=== PATIENT | male | born 1950 | race Caucasian/White ===

== ENCOUNTER 2017-12-03 13:36 | Emergency (ER) | payer MEDICARE, BC ==
[2017-12-03 15:26] VITALS: BP 142/84
--- NOTE | 2017-12-03 15:43 | UC ---
Throat Pain/Nasal Cristopher HPI - HPI Summary HPI Summary: 8 days of worsening upper respiratory infections the last 4 days exclusively into his sinuses, has headache, and sinus pain pressure, ear pain, and pressure - History of Current Complaint Chief Complaint: UCGeneralIllness Stated Complaint: SINUS Time Seen by Provider: 12/03/17 15:10 Hx Obtained From: Patient Onset/Duration: Sudden Onset, Lasting Days - 8, Still Present Severity: Moderate Pain Intensity: 5 Pain Scale Used: 0-10 Numeric Cough: None Associated Signs & Symptoms: Positive: Sinus Discomfort, Nasal Discharge - Allergies/Home Medications Allergies/Adverse Reactions: Allergies Allergy/AdvReac Type Severity Reaction Status Date / Time No Known Allergies Allergy Verified 12/03/17 15:23 Home Medications: Home Medications Pravastatin (NF) [Pravachol (NF)] 20 mg PO DAILY 12/03/17 [History Confirmed ] PMH/Surg Hx/FS Hx/Imm Hx Previously Healthy: No Endocrine History: Dyslipidemia Cardiovascular History: Hypertension GI/ History: Gastroesophageal Reflux - Surgical History Surgical History: Yes Surgery Procedure, Year, and Place: hernia x2 - Family History Known Family History: Positive: None - Social History Occupation: Retired Lives: With Family Alcohol Use: Occasionally Substance Use Type: None Smoking Status (MU): Former Smoker Type: Cigars Amount Used/How Often: occasional cigar - Immunization History Most Recent Influenza Vaccination: fall 2012 Review of Systems Constitutional: Negative Skin: Negative Eyes: Negative ENT: Sore Throat, Ear Ache, Nasal Discharge, Sinus Congestion, Sinus Pain/ Tenderness Respiratory: Negative Cardiovascular: Negative Gastrointestinal: Negative Genitourinary: Negative Motor: Negative Neurovascular: Negative Musculoskeletal: Negative Neurological: Headache Psychological: Negative Is Patient Immunocompromised?: No All Other Systems Reviewed And Are Negative: Yes Physical Exam Triage Information Reviewed: Yes Appearance: No Pain Distress, Well-Nourished, Ill-Appearing - mild Vital Signs: Initial Vital Signs Temp 98.8 F 12/03/17 15:20 Pulse 60 12/03/17 15:20 Resp 14 12/03/17 15:20 BP 142/84 12/03/17 15:20 Pulse Ox 97 12/03/17 15:20 Vital Signs Reviewed: Yes Eye Exam: Normal Eyes: Positive: Conjunctiva Clear ENT Exam: Normal ENT: Positive: Normal ENT inspection, Hearing grossly normal, Pharynx normal, Nasal congestion, TMs normal, Sinus tenderness, Uvula midline. Negative: Tonsillar swelling, Tonsillar exudate, Trismus, Muffled voice, Hoarse voice, Dental tenderness Dental Exam: Normal Neck exam: Normal Neck: Positive: Supple, Nontender, No Lymphadenopathy Respiratory Exam: Normal Respiratory: Positive: Chest non-tender, Lungs clear, Normal breath sounds, No respiratory distress, No accessory muscle use Cardiovascular Exam: Normal Cardiovascular: Positive: RRR, No Murmur, Pulses Normal, Brisk Capillary Refill Musculoskeletal Exam: Normal Musculoskeletal: Positive: Strength Intact, ROM Intact Neurological Exam: Normal Neurological: Positive: Alert, Muscle Tone Normal Psychological Exam: Normal Skin Exam: Normal Throat Pain/Nasal Course/Dx - Course Assessment/Plan: Mucinex D, Tylenol or ibuprofen, Flonase nasal spray, Augmentin , increase fluids follow with PCP - Differential Dx/Diagnosis Provider Diagnoses: Acute rhinosinusitis, hypertension in poor control Discharge - Sign-Out/Discharge Documenting (check all that apply): Discharge/Admit/Transfer - Discharge Plan Condition: Stable Disposition: HOME Prescriptions: Amoxicillin/Clavulanate TAB* [Augmentin TAB 875*] 875 mg PO BID #20 tab Fluticasone NASAL SPRAY 50MCG* [Flonase NASAL SPRAY 50MCG*] 2 spray BOTH NARES DAILY #1 btl Patient Education Materials: Decongestant/Expectorant (By mouth), Sinusitis (ED ), Hypertension (ED) Referrals: Asher Blake MD [Primary Care Provider] - 2 Weeks - Billing Disposition and Condition Condition: STABLE Disposition: HOME
== END 2017-12-03 15:59 | disposition home or self-care (01) ==
LOC: UCCORT 13:36
DX: J01.90 Acute sinusitis, unspecified (principal); I10 Essential (primary) hypertension; Z87.891 Personal history of nicotine dependence
CPT/HCPCS: 99212; G0463

== ENCOUNTER 2018-11-30 09:22 | Emergency (ER) | payer BC, MEDICARE ==
[2018-11-30 10:09] VITALS: BP 138/81
--- NOTE | 2018-11-30 10:21 | UC ---
UC Dental HPI - HPI Summary HPI Summary: Pt presents with c/o right lower jaw swelling along gum line, tooth tenderness X 4 days. Pt has been taking aleve for pain management. Little improvement. Pt does not have an appointment with dental provider. Pt does have dental provider, [facility] [place]. - History of Current Complaint Chief Complaint: UCDentalProblem Stated Complaint: DENTAL/SINUSES Time Seen by Provider: 11/30/18 10:17 Hx Obtained From: Patient Onset/Duration: Gradual Onset, Lasting Days, Still Present, Worse Since - onset Severity: Moderate Pain Intensity: 6 Aggravating Factor(s): Chewing Alleviating Factor(s): Nothing Related History: Previous Dental Care on Same Tooth, Swelling - Allergies/Home Medications Allergies/Adverse Reactions: Allergies Allergy/AdvReac Type Severity Reaction Status Date / Time No Known Allergies Allergy Verified 11/30/18 10:02 Home Medications: Home Medications Naproxen Sodium [Aleve] 220 mg PO ONCE PRN 11/30/18 [History Confirmed 11/30/18] PMH/Surg Hx/FS Hx/Imm Hx Previously Healthy: Yes Endocrine History: Dyslipidemia Cardiovascular History: Cardiac Disease, Hypertension - Surgical History Surgical History: Yes Surgery Procedure, Year, and Place: hernia x2. bone marrow biopsy - Family History Known Family History: Positive: Cardiac Disease - Social History Occupation: Retired Lives: With Family Alcohol Use: Occasionally Substance Use Type: None Smoking Status (MU): Former Smoker Type: Cigars Amount Used/How Often: occasional cigar Have You Smoked in the Last Year: Yes - Immunization History Most Recent Influenza Vaccination: fall 2012 Vaccination Up to Date: No Review of Systems All Other Systems Reviewed And Are Negative: Yes Constitutional: Positive: Negative Skin: Positive: Negative Eyes: Positive: Negative ENT: Positive: Dental Pain Respiratory: Positive: Negative Cardiovascular: Positive: Negative Gastrointestinal: Positive: Negative Genitourinary: Positive: Negative Motor: Positive: Negative Neurovascular: Positive: Negative Musculoskeletal: Positive: Negative Neurological: Positive: Negative Psychological: Positive: Negative Is Patient Immunocompromised?: No Physical Exam Triage Information Reviewed: Yes Appearance: Well-Appearing Vital Signs: Initial Vital Signs Temp 99.5 F 11/30/18 10:04 Pulse 72 11/30/18 10:04 Resp 16 11/30/18 10:04 BP 138/81 11/30/18 10:04 Pulse Ox 97 11/30/18 10:04 Vital Signs Reviewed: Yes Eye Exam: Normal ENT Exam: Normal Dental: Positive: Abscess @ - right lower gum ~ #6 tooth, Neck exam: Normal Neck: Positive: Supple Respiratory: Positive: No respiratory distress Musculoskeletal Exam: Normal Neurological Exam: Normal Psychological Exam: Normal Skin Exam: Normal Dental Complaint Course/Dx - Differential Dx/Diagnosis Differential Diagnosis/Dx: Dental Abscess, Dental Caries Provider Diagnosis: Dental abscess Discharge - Sign-Out/Discharge Documenting (check all that apply): Patient Departure All imaging exams completed and their final reports reviewed: No Studies - Discharge Plan Condition: Stable Disposition: HOME Prescriptions: Penicillin VK 500 MG TAB(NF) [Penicillin VK 500 mg Tab] 500 mg PO Q8H #30 tab predniSONE TAB* [Deltasone 10 MG TAB*] 30 mg PO DAILY #12 tab Patient Education Materials: Dental Abscess (ED) Referrals: Asher Blake MD [Primary Care Provider] - If Needed Additional Instructions: Please follow up with your dental care provider as soon as possible. Dr. Yoel Rodriguez Address: [address] [place] [address] - Billing Disposition and Condition Condition: STABLE Disposition: Home
== END 2018-11-30 10:50 | disposition home or self-care (01) ==
LOC: UCCORT 09:22
DX: K04.7 Periapical abscess without sinus (principal); Z87.891 Personal history of nicotine dependence; I10 Essential (primary) hypertension
CPT/HCPCS: 99212; G0463

== ENCOUNTER 2019-03-21 12:27 | Emergency (ER) | payer MEDICARE ==
[2019-03-21 13:45] VITALS: BP 118/78
--- NOTE | 2019-03-21 13:50 | UC ---
Throat Pain/Nasal Cristopher HPI - HPI Summary HPI Summary: 68-year-old male who had a dental cleaning 2 days ago. Last evening he had some swelling and pain to left upper molar. He has taken 3 doses of penicillin which were from a leftover prescription with mild improvement today. He did not have x-rays done at the dentist this week. - History of Current Complaint Chief Complaint: UCDentalProblem Stated Complaint: SINUS CONCERN Time Seen by Provider: 03/21/19 13:40 Hx Obtained From: Patient Onset/Duration: Gradual Onset Severity: Mild Pain Intensity: 5 Associated Signs & Symptoms: Positive: Sinus Discomfort - Patient states he has some left maxillary sinus discomfort today. - Allergies/Home Medications Allergies/Adverse Reactions: Allergies Allergy/AdvReac Type Severity Reaction Status Date / Time No Known Allergies Allergy Verified 03/21/19 13:46 PMH/Surg Hx/FS Hx/Imm Hx Previously Healthy: Yes Cardiovascular History: Hypertension - Surgical History Surgical History: Yes Surgery Procedure, Year, and Place: hernia x2. bone marrow biopsy - Family History Known Family History: Positive: None, Cardiac Disease - Social History Alcohol Use: Occasionally Substance Use Type: None Smoking Status (MU): Current Some Day Smoker Type: Cigars Amount Used/How Often: occasional cigar Have You Smoked in the Last Year: Yes - Immunization History Most Recent Influenza Vaccination: fall 2012 Vaccination Up to Date: No Review of Systems All Other Systems Reviewed And Are Negative: Yes Constitutional: Positive: Negative Skin: Positive: Negative ENT: Positive: Dental Pain, Sinus Pain/Tenderness - Left maxillary sinus pain and tenderness. Is Patient Immunocompromised?: No Physical Exam Triage Information Reviewed: Yes Appearance: Well-Appearing, No Pain Distress, Well-Nourished Vital Signs: Initial Vital Signs Temp 98.4 F 03/21/19 13:39 Pulse 72 03/21/19 13:39 Resp 16 03/21/19 13:39 BP 118/78 03/21/19 13:39 Pulse Ox 97 03/21/19 13:39 Vital Signs Reviewed: Yes Eyes: Positive: Conjunctiva Clear ENT: Positive: Hearing grossly normal, Pharynx normal, TMs normal, Uvula midline Dental: Positive: Percussion Tenderness @ - Patient has some erythema with minimal swelling of the left upper gumline near his molars. There is no abscess formation at this point in time. Neck: Positive: Supple, Nontender, No Lymphadenopathy Respiratory: Positive: Lungs clear, Normal breath sounds, No respiratory distress, No accessory muscle use Cardiovascular: Positive: RRR, No Murmur, Pulses Normal, Brisk Capillary Refill Musculoskeletal: Positive: Strength Intact, ROM Intact Neurological: Positive: Alert, Muscle Tone Normal Psychological Exam: Normal Skin: Positive: Other - Left side of maxilla is mildly swollen with tenderness on palpation of the maxillary sinus. Throat Pain/Nasal Course/Dx - Course Course Of Treatment: The patient is fairly comfortable here. I don't believe this is a sinusitis I believe this is related to the dental cleaning he had a few days ago with cellulitis of the gumline with minimal swelling. There is no abscess formation. He is to recheck with the dentist on Monday if he has continued swelling and pain and if he develops any increase in facial swelling, fever, chills, worsening pain and he is to go to the emergency room for treatment. - Differential Dx/Diagnosis Provider Diagnosis: Pain, dental Discharge - Sign-Out/Discharge Documenting (check all that apply): Patient Departure All imaging exams completed and their final reports reviewed: No Studies - Discharge Plan Condition: Fair Disposition: HOME Prescriptions: Amoxicillin/Clavulanate TAB* [Augmentin TAB 875*] 875 mg PO BID 10 Days #20 tab Patient Education Materials: Dental Abscess (ED) Referrals: Asher Blake MD [Primary Care Provider] - Additional Instructions: He may apply ice to the swollen area. Take Aleve 2 tablets twice a day for pain. You may take Tylenol every 4 hours as needed for pain. Take the antibiotic with food. Definite follow-up with your dentist on Monday if no improvement. Go to the emergency room if you develop increased facial swelling , increased pain, fever, chills unable keep the medicine down. - Billing Disposition and Condition Condition: FAIR Disposition: Home
== END 2019-03-21 14:26 | disposition home or self-care (01) ==
LOC: UCCORT 12:27
DX: K08.89 Other specified disorders of teeth and supporting structures (principal); I10 Essential (primary) hypertension; F17.290 Nicotine dependence, other tobacco product, uncomplicated
CPT/HCPCS: 99212; G0463

== ENCOUNTER 2019-08-10 11:39 | Emergency (ER) | payer MEDICARE ==
--- OUTSIDE RECORDS SUMMARY | 2019-08-10 12:18 | XMS REPORT | Continuity of Care Document ---
:1950 External Reference #:[id number] Author Name Asher Blake M.D. (transmitted by agent of provider Isabelle Rowe) Address [address] [facility], [address] [place] [id number] Care Team Providers Name Role Phone Asher Blake III, MD - Internal Care Team Information [facility] Luly Lockwood MD - Gastroenterology Care Team Information [facility] Problems Active Problems Provider Date Benign essential hypertension Asher Blake M.D. Onset: 12/12/2011 Gastroesophageal reflux disease Asher Blake M.D. Onset: 12/12/2011 Benign localized hyperplasia of prostate Asher Blake M.D. Onset: 2011 Essential hypertension Asher Blake M.D. Onset: 06/24/2015 Pure hypercholesterolemia Asher Blake M.D. Onset: 12/09/2015 Pure hypercholesterolemia Asher Blake M.D. Onset: 06/13/2016 Social History Type Date Description Comments Sex Unknown Cigarette Use Quit - Age 31 Tobacco Use Start: Unknown Smoked ages [age]; occ cigar now Smoking Status Reviewed: 06/17/19 Smoked ages [age]; occ cigar now ETOH Use Occasionally consumes alcohol Tobacco Use Start: Unknown End: Patient is a former Unknown smoker Exercise Exercises regularly walks about once a Type/Frequency week for 40-60 min Allergies, Adverse Reactions, Alerts Active Allergies Reaction Severity Comments Date Lisinopril cough 05/29/2008 Inactive Allergies NKDA 05/02/2007 Medications Active Medications SIG Qnty Indications Ordering Provider Date Pravastatin Sodium 1 by mouth every 90tabs E78.0 Asher Blake, 2017 10mg day in the M.D. Tablets evening Z13.220 Amlodipine Besylate take one tablet by 90tabs Asher Blake, 2007 10mg Tablets mouth every day M.D. Multivitamins 1 PO qd Yimi Martins MD Tablets Glucosamine/Chondroitin 2 PO qd Other Physician Capsules Practices Coq-10 1 PO qd Other Physician 50mg Capsules Practices Calcium Citrate 1 daily Unknown Tablets Medications Administered in Office Medication SIG Qnty Indications Ordering Provider Date Influenza Virus Vaccine Unknown 05/07/2014 Injection Influenza Virus Vaccine Unknown 05/07/2013 Injection Immunizations CPT Code Status Date Vaccine Reaction Lot # [id number] Given 06/17/2019 Influenza Virus Vaccine, [id number] Quadrivalent ([id number]), Derived From Cell 70178 Given 12/13/2018 Pneumonia Vaccine shot tolerated well, [id number] no immediate reaction 22518 Given 06/15/2018 Influenza Virus Vaccine, No immedite [id number] Quadrivalent, Split, reaction...jh Preservative Free 08699 Given 12/12/2017 Pneumococcal Conjugate [id number] Vaccine 13 Valent For Intramuscular Use 11066 Given 06/14/2017 Influenza Virus Vaccine, [id number] Quadrivalent, Split, Preservative Free 82688 Given 06/13/2016 Influ Virus Vaccine, [id number] Quadrivalent, Split Virus, [place] [address] Given 12/09/2015 Tdap - [id number] Tetanus/Diptheria/Acellular Pertussis 93087 Given 06/24/2015 Influenza Virus Vaccine, [id number] Quadrivalent, Split, Preservative Free [id number] Given 05/15/2012 Fluvirin Im 3Yrs And Older 81541 Given 05/12/2010 Influenza Virus 3Yrs & Over [id number] 36862 Given 06/10/2009 Influenza Virus Vaccine, Pandemic Formulation 39202 Given 06/10/2009 Administration Swine Flu Shot 11416 Given 05/22/2009 Influenza Virus 3Yrs & Over 30034 Given 05/22/2009 Influenza Virus 3Yrs & Over [id number] 97410 Given 08/07/2005 Tetanus And Diptheria (Td) For Adult Use Preservative Free Vital Signs Date Vital Result Comment 06/17/2019 9:33am Height 68 inches 5'8" Weight 214.00 lb Heart Rate 76 /min BP Systolic Sitting 134 mmHg BP Diastolic Sitting 84 mmHg Body Temperature 97.6 F BMI (Body Mass Index) 32.5 kg/m2 12/13/2018 8:56am Height 68 inches 5'8" Weight 204.12 lb Heart Rate 64 /min BP Systolic 133 mmHg recheck 133/84 BP Diastolic 84 mmHg recheck 133/84 Body Temperature 97.3 F O2 % BldC Oximetry 98 % BMI (Body Mass Index) 31.0 kg/m2 Results Test Acquired Date Facility Test Result H/L Range Note Comp Metabolic 06/06/2019 [facility] Sodium 140 mmol/L Normal 135-[address] [place] [address] [phone] Potassium 4.4 mmol/L Normal 3.5-5.0 Chloride 108 mmol/L Normal 101-111 Co2 Carbon Dioxide 26 mmol/L Normal 22-32 Anion Gap 6 mmol/L Normal 2-11 Glucose 92 mg/dL Normal 70-100 Blood Urea Nitrogen 15 mg/dL Normal 6-24 Creatinine 1.14 mg/dL Normal 0.67-1.17 BUN/Creatinine Ratio 13.2 Normal 8-20 Calcium 9.2 mg/dL Normal 8.6-10.3 Total Protein 6.8 g/dL Normal 6.4-8.9 Albumin 4.1 g/dL Normal 3.2-5.2 Globulin 2.7 g/dL Normal 2-4 Albumin/Globulin Ratio 1.5 Normal 1-3 Total Bilirubin 0.70 mg/dL Normal 0.2-1.0 Alkaline Phosphatase 63 U/L Normal 34-104 Alt 19 U/L Normal 7-52 Ast 17 U/L Normal 13-39 Egfr Non- 64.1 >60 Egfr 77.5 >60 1 Lipid Profile 06/06/2019 [facility] Triglycerides 157 mg/dL 2 (Trig/Chol/HDL) [address] [place] [address] [phone] Cholesterol 202 mg/dL 3 HDL Cholesterol 48.4 mg/dL 4 LDL Cholesterol 122 mg/dL 5 Laboratory test 06/06/2019 [facility] PSA Diagnostic 0.646 Normal 0-4.[address] ng/[place] [address] [phone] 1 Because ethnic data is not always readily available, this report includes an eGFR for both -Americans and non- Americans. The National Kidney Disease Education Program (NKDEP) does not endorse the use of the MDRD equation for patients that are not between the ages of 18 and 70, are , have extremes of body size, muscle mass, or nutritional status, or are non- or non-. According to the National Kidney Foundation, irrespective of diagnosis, the stage of the disease is based on the level of kidney function: Stage Description GFR(mL/min/1.73 m(2)) 1 Kidney damage with normal or decreased GFR 90 2 Kidney damage with mild decrease in GFR 60-89 3 Moderate decrease in GFR 30-59 4 Severe decrease in GFR 15-29 5 Kidney failure <15 (or dialysis) 2 Desirable: <150 Borderline High: 150-199 High: 200-499 Very High: >500 3 Desirable: <200 Borderline High: 200-239 High: >239 4 Low: <40 Desirable: 40-60 High: >60 5 Desirable: <100 Near Optimal: 100-129 Borderline High: 130-159 High: 160-189 Very High: >189 Procedures Date Code Description Status 07/07/2016 27216620 Colonoscopy Completed 12/12/2005 76352932 Colonoscopy Completed 06/27/2005 21106270 Colonoscopy Completed Medical Devices Description No Information Available Encounters Description No Information Available Assessments Date Code Description Provider 06/17/2019 Z00.00 Encounter for general adult medical Asher Blake M.D. examination without abnormal findings 06/17/2019 I10 Essential (primary) hypertension Asher Blake M.D. 06/17/2019 E78.00 Pure hypercholesterolemia, unspecified Asher Blake M.D. 06/17/2019 K21.9 Gastro-esophageal reflux disease without Asher Blake M.D. esophagitis 06/17/2019 Z23 Encounter for immunization Asher Blake M.D. 06/17/2019 L98.9 Disorder of the skin and subcutaneous Asher Blake M.D. tissue, unspecified Plan of Treatment Future Appointment(s):12/18/2019 11:40 am - [facility] Asher Blake M.D.Z00.00 Encounter for general adult medical examination without abnormal findingsComments:Flu shot today; pt not interested in the new shingles vaccine. other shots current. (+) dental checks, past eye exams. Repeat colon exam pending in Aug 2019I10 Essential (primary) hypertensionComments:BPs ok, but weight up 10 lbs from December. Continue Rx, diet/weight loss/exercise efforts and home BP checks. Recheck overnight oximetryFollow up:6 months or prnE78.00 Pure hypercholesterolemia, unspecifiedComments:On Rx; cholesterol 202 this year. Diet, exercise, weight loss hpniyeyE74.9 Gastro-esophageal reflux disease without esophagitisComments:Only acc antacids nowZ23 Encounter for bpbkyvutmcpyQ44.9 Disorder of the skin and subcutaneous tissue, unspecifiedComments:Flat, slightly scaling lesion on forehead noted over the past 3 years with no changes or sx. Derm eval advisedReferral:Terrance Gonzalez MD , Dermatology Functional Status Description No Information Available Mental Status Description No Information Available Referrals Refer to Dr Reason for Referral Status Appt Date Terrance Gonzalez MD Flat, slightly scaling lesion on forehead noted Sent 00/00 /0000 for 3 years Schedule in [address], [place] [address] [phone]
--- OUTSIDE RECORDS SUMMARY | 2019-08-10 12:18 | XMS REPORT | Continuity of Care Document ---
:1950 External Reference #:[id number] Author Name Asher Blake M.D. 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 Problems Active Problems Provider Date Benign essential [...] 14-29; occ cigar now Smoking Status Reviewed: 07/26/19 Smoked ages 14-29; occ cigar now ETOH [...] Code Status Date Vaccine Reaction Lot # [id number] Given 06/17/2019 Influenza Virus Vaccine, [id number] Quadrivalent ([id number]), Derived From Cell 75502 Given 12/13/2018 Pneumonia Vaccine shot tolerated well, [id number] no immediate reaction 85106 Given 06/15/2018 Influenza Virus Vaccine, No immedite [id number] Quadrivalent, Split, reaction...jh Preservative Free 24273 Given 12/12/2017 Pneumococcal Conjugate [id number] Vaccine 13 Valent For Intramuscular Use 64693 Given 06/14/2017 Influenza Virus Vaccine, [id number] Quadrivalent, Split, Preservative Free 90797 Given 06/13/2016 Influ Virus Vaccine, [id number] Quadrivalent, Split Virus, [place] [address] Given 12/09/2015 Tdap - [id number] Tetanus/Diptheria/Acellular Pertussis 89130 Given 06/24/2015 Influenza Virus Vaccine, [id number] Quadrivalent, Split, Preservative Free [id number] Given 05/15/2012 Fluvirin Im 3Yrs And Older 53601 Given 05/12/2010 Influenza Virus 3Yrs & Over [id number] 26790 Given 06/10/2009 Influenza Virus Vaccine, Pandemic Formulation 41562 Given 06/10/2009 Administration Swine Flu Shot 56144 Given 05/22/2009 Influenza Virus 3Yrs & Over 10705 Given 05/22/2009 Influenza Virus 3Yrs & Over [id number] 58068 Given 08/07/2005 Tetanus And Diptheria (Td) For Adult Use Preservative Free Vital Signs Date Vital Result Comment 07/26/2019 11:47am Height 68 inches 5'8" Weight 213.00 lb Heart Rate 63 /min BP Systolic Sitting 144 mmHg BP Diastolic Sitting 89 mmHg BMI (Body Mass Index) 32.4 kg/m2 06/17/2019 9:33am Height 68 inches 5'8" Weight 214.00 lb Heart Rate 76 /min BP Systolic Sitting 134 mmHg BP Diastolic Sitting 84 mmHg Body Temperature 97.6 F BMI (Body Mass Index) 32.5 kg/m2 Results Test Acquired Date Facility Test Result H/L Range Note Comp Metabolic 06/06/2019 [facility] Sodium 140 mmol/L Normal 135-145 Panel [address] [place] [address] [phone] Potassium 4.4 mmol/L Normal 3.5-5.0 Chloride 108 [...] Egfr 77.5 >60 1 Lipid Profile 06/06/2019 [facility] Triglycerides 157 mg/dL 2 (Trig/Chol/HDL) [address] [place] [address] [phone] Cholesterol 202 mg/dL 3 HDL Cholesterol 48.4 mg/dL 4 LDL Cholesterol 122 mg/dL 5 Laboratory test 06/06/2019 [facility] PSA Diagnostic 0.646 Normal 0-4.[address] ng/[place] [address] [phone] 1 Because ethnic data is not always [...] High: >189 Procedures Date Code Description Status 07/09/2019 [id number] Colonoscopy Completed 07/07/2016 [id number] Colonoscopy Completed 12/12/2005 [id number] Colonoscopy Completed 06/27/2005 [id number] Colonoscopy Completed Medical Devices Description No Information [...] M.D. tissue, unspecified Plan of Treatment Future Appointment(s):08/14/2019 2:50 pm - Terrance Gonzalez MD at [facility] Dermatology AT Pcdjrypg97/13/2020 11:40 am - Asher Blake M.D. at [facility] - Asher Blake M.D.Z00.00 Encounter for general adult medical examination without abnormal findingsComments:Flu shot today; pt not interested in the new shingles vaccine. other shots current. (+) dental checks, past eye exams. Repeat colon exam pending in Aug 2019I10 Essential ( primary) hypertensionComments:BPs ok, but weight up 10 lbs from December. Continue Rx, diet/weight loss/exercise efforts and home BP checks. Recheck overnight oximetryFollow up:6 months or prnE78.00 Pure hypercholesterolemia, unspecifiedComments:On Rx; cholesterol 202 this year. Diet, exercise, weight loss ivvkocaH32.9 Gastro-esophageal reflux disease without esophagitisComments: Only acc antacids nowZ23 Encounter for fyodmboqmbtzC88.9 Disorder of the skin and subcutaneous tissue, unspecifiedComments:Flat, slightly scaling lesion on forehead noted over the past 3 years with no changes or sx. Derm eval advisedReferral:Terrance Gonzalez MD, Dermatology Functional Status Description No Information Available Mental Status Description No Information Available Referrals Refer to Dr Reason for Referral Status Appt Date Anupam Lundberg MD abnormal overnight oximetry Sent 08/12/[address] [place] [id number] [phone] Terrance Gonzalez MD Flat, slightly scaling lesion on forehead noted Sent 07/16 for 3 years Schedule in [address], [place] [address] [phone]
[2019-08-10 12:24] VITALS: BP 135/84
--- NOTE | 2019-08-10 12:32 | UC ---
FLU HPI - HPI Summary HPI Summary: 69-year-old male presents with complaints of sudden onset of fever (101.1 F), general malaise, body aches, fatigue, headache, nasal congestion, sore throat, a dry nonproductive cough yesterday. He has taken naproxen with some relief symptoms. He did receive his flu shot this year. Denies ear pain, dysphagia, chest pain, palpitations, shortness of breath, abdominal pain, nausea, vomiting , or diarrhea. - History of Current Complaint Chief Complaint: UCRespiratory Stated Complaint: COUGH,CONGESTION Time Seen by Provider: 08/10/19 12:20 Hx Obtained From: Patient Pain Intensity: 1 - Allergy/Home Medications Allergies/Adverse Reactions: Allergies Allergy/AdvReac Type Severity Reaction Status Date / Time No Known Allergies Allergy Verified 08/10/19 12:21 Home Medications: Home Medications amLODIPine TAB* [Norvasc 5 mg TAB*] 10 mg PO DAILY 08/10/19 [History Confirmed 08/10/19] PMH/Surg Hx/FS Hx/Imm Hx Endocrine History: Dyslipidemia Cardiovascular History: Hypertension - Surgical History Surgical History: Yes Surgery Procedure, Year, and Place: hernia x2. bone marrow biopsy - Family History Known Family History: Positive: None, Cardiac Disease - Social History Occupation: Retired Lives: With Family Alcohol Use: Occasionally Substance Use Type: None Smoking Status (MU): Current Some Day Smoker Type: Cigars Amount Used/How Often: occasional cigar Have You Smoked in the Last Year: Yes - Immunization History Most Recent Influenza Vaccination: fall 2012 Vaccination Up to Date: No Review of Systems All Other Systems Reviewed And Are Negative: Yes Constitutional: Positive: Fever, Chills, Fatigue Skin: Negative: Rash Eyes: Negative: Drainage, Eye Redness ENT: Positive: Sore Throat, Nasal Discharge, Sinus Congestion. Negative: Ear Ache, Sinus Pain/Tenderness Respiratory: Positive: Cough. Negative: Shortness Of Breath Cardiovascular: Negative: Palpitations, Chest Pain Gastrointestinal: Negative: Abdominal Pain, Vomiting, Diarrhea, Nausea Genitourinary: Positive: Negative Musculoskeletal: Positive: Myalgia Neurological: Positive: Headache Is Patient Immunocompromised?: No Physical Exam - Summary Physical Exam Summary: GENERAL APPEARANCE: Well developed, well nourished, alert and cooperative, and appears to be in no acute distress. EYES: Conjunctiva clear. No drainage. EARS: External auditory canals and tympanic membranes clear, hearing grossly intact. NOSE: Mild nasal congestion. No nasal discharge. THROAT: Pharyngeal erythema. No tonsilar inflammation, swelling, exudate, or lesions. Uvula midline. NECK: Neck supple, non-tender without lymphadenopathy. CARDIAC: Normal S1 and S2. No S3, S4 or murmurs. Rhythm is regular. There is no peripheral edema, cyanosis or pallor. Extremities are warm and well perfused. Capillary refill is less than 2 seconds. Peripheral pulses intact. LUNGS: Clear to auscultation without rales, rhonchi, wheezing or diminished breath sounds. Dry, non-productive cough. ABDOMEN: Positive bowel sounds. Soft, nondistended, nontender. No guarding or rebound. No masses or hepatosplenomegally. MUSKULOSKELETAL: ROM intact to all extremities. No joint erythema or tenderness. Normal muscular development. Normal gait. SKIN: Skin normal color, texture and turgor with no lesions or eruptions. Triage Information Reviewed: Yes Vital Signs: Initial Vital Signs Temp 99.3 F 08/10/19 12:18 Pulse 80 08/10/19 12:18 Resp 18 08/10/19 12:18 BP 135/84 08/10/19 12:18 Pulse Ox 96 08/10/19 12:18 Vital Signs Reviewed: Yes Flu Course/Dx - Course Course Of Treatment: 69-year-old male presents with complaints of sudden onset of fever (101.1 F), general malaise, body aches, fatigue, headache, nasal congestion, sore throat, a dry nonproductive cough yesterday. He has taken naproxen with some relief symptoms. He did receive his flu shot this year. Denies ear pain, dysphagia, chest pain, palpitations, shortness of breath, abdominal pain, nausea, vomiting , or diarrhea. Afebrile. Vital signs stable. Patient and mild nasal congestion, pharyngeal erythema without tonsillar swelling or x-ray, no cervical lymphadenopathy, clear bilateral breath sounds, dry nonproductive cough , and otherwise unremarkable exam. Rapid flu was positive for influenza A. Reviewed results with the patient. Discussed the risks and benefits of treatment with Tamiflu and patient is electing to start at this time. He is to follow-up with his primary care provider in 3-5 days if symptoms are not improving. Anticipatory guidance and warning symptoms were reviewed with the patient. Verbalizes understanding and agrees with plan of care. - Differential Dx/Diagnosis Differential Diagnosis/HQI/PQRI: Bronchitis, Influenza, Pneumonia, Upper Respiratory Infection Provider Diagnosis: Influenza A Discharge ED - Sign-Out/Discharge Documenting (check all that apply): Patient Departure All imaging exams completed and their final reports reviewed: No Studies - Discharge Plan Condition: Stable Disposition: HOME Prescriptions: Benzonatate CAP* [Tessalon 100 MG CAP*] 100 mg PO TID PRN #21 cap PRN Reason: Cough Oseltamivir CAP* [Tamiflu CAP*] 75 mg PO BID #10 cap Patient Education Materials: Influenza (ED) Referrals: Asher Blake MD [Primary Care Provider] - 3 Days (Follow up in 3-5 days if no improvement in symptoms.) Additional Instructions: Your flu test in the clinic today was positive for influenza A. Start Tamiflu 1 capsule twice a day for 5 days. Get plenty of rest. Drink plenty of fluids to avoid dehydration especially if you are running any fever. Take over the counter acetaminophen (Tylenol) according to directions as needed for pain or fever. Take Tessalon Perles 1 cap every 8 hours as needed for cough. Use salt water gargles several times a day if you have a sore throat. You may also use Chloraseptic spray or Cepacol lonzenges according to directions which contain a numbing medication and can provide some temporary relief from your sore throat. Follow up with your primary care provider in 3-5 days if symptoms persist. Seek immediate medical attention in the emergency room if you have fever greater than 100.5 F despite taking acetaminophen or ibuprofen, have chest pain , difficulty breathing, are unable to swallow, or have any worsening of symptoms. - Billing Disposition and Condition Condition: STABLE Disposition: Home
[2019-08-10 12:40] LABS: Influenza A Molecular POSITIVE (Negative)
== END 2019-08-10 12:56 | disposition home or self-care (01) ==
LOC: UCCORT 11:39
DX: J11.1 Influenza due to unidentified influenza virus with other respiratory manifestations (principal); I10 Essential (primary) hypertension; F17.290 Nicotine dependence, other tobacco product, uncomplicated; Z79.899 Other long term (current) drug therapy
CPT/HCPCS: 99212; G0463